=== PATIENT | male | born 1995 | race Caucasian/White ===

== ENCOUNTER 2017-02-01 21:37 | Emergency (ER) | payer BC ==
[2017-02-01 21:49] VITALS: RESP 16; TEMP 98.6
--- NOTE | 2017-02-01 22:35 | EDPHY ---
H & P Stated Complaint: Right Hand Injury Time Seen by Provider: 02/01/17 22:02 HPI/ROS: Chief complaint: Right hand injury History of present illness: This is a 21-year-old male who presents to the emergency department for evaluation of right hand injury. Patient reports earlier this evening he punched a tree. Since then he has noted abrasions to his hands as well as pain and swelling. It is difficult to move his fingers. He denies other associated signs or symptoms including no report of abnormal coolness or paresthesias in the hand. He denies pain or trauma to the wrist or the rest of the right upper extremity or other parts of the body. - Personal History Current Tetanus/Diphtheria Vaccine: Yes Current Tetanus Diphtheria and Acellular Pertussis (TDAP): Yes - Medical/Surgical History Hx Asthma: No Hx Chronic Respiratory Disease: No Hx Diabetes: No Hx Cardiac Disease: No Hx Renal Disease: No Hx Cirrhosis: No Hx Alcoholism: No Hx HIV/AIDS: No Hx Splenectomy or Spleen Trauma: No - Social History Smoking Status: Never smoked - Physical Exam Exam: General: Alert, nontoxic Skin: Abrasions over the MCP joints, no deep wounds or repairable lesions noted. Contusion over the dorsum of the hand. Musculoskeletal: Deformity over the dorsum of the right hand. Difficulty moving the fingers particularly of the 4th finger. The wrist including the snuffbox as well as the rest of the right upper extremity is nontender. He is moving the right elbow and shoulder without difficulty. Vascular: Radial pulses 2+. Capillary refill brisk in the right hand. Neurologic: Sensation intact throughout the right hand. Constitutional: Initial Vital Signs Temperature (C) 37 C 02/01/17 21:46 Heart Rate 70 02/01/17 21:46 Respiratory Rate 16 02/01/17 21:46 Blood Pressure 128/86 H 02/01/17 21:46 O2 Sat (%) 95 02/01/17 21:46 O2 Delivery Mode Room Air Allergies/Adverse Reactions: No Known Allergies Allergy (Unverified 02/01/17 21:49) Home Medications: Medication Instructions Recorded Hydrocodone/APAP 5/325 [Cornwall 1 tab PO Q4 #10 tab 02/01/17 5/325 (*)] Medical Decision Making - Diagnostics Imaging: X-ray series of the right hand consistent with a 4th metacarpal fracture Procedures: Procedure: Splint placement. A ulnar gutter splint was applied. After application of the splint I returned and re-examined the patient. The splint was adequately immobilizing the joint and distal to the splint the patient's circulation and sensation was intact. ED Course/Re-evaluation: Patient seen under the supervision of my secondary supervising physician Dr. Flex Horta. Patient presents to the emergency department for right hand injury. X-ray confirms fracture. He is neurovascularly intact. He is splinted. By history and physical exam no evidence of trauma to other parts of the body. Patient is discharged home. Home care is discussed. He is referred to Hand surgery for further evaluation and care. Return precautions are given. Patient voiced understanding and agreement with plan. - Data Points Medications Given: Discontinued Medications Hydrocodone Bitart/Acetaminophen (Cornwall 5/325mg Prepack#6) 1 btl TAKEHOME EDNOW ONE Stop: 02/01/17 22:37 Last Admin: 02/01/17 22:55 Dose: 1 btl Departure - Departure Disposition: Home, Routine, Self-Care Clinical Impression: Metacarpal bone fracture Qualifiers: Encounter type: initial encounter Metacarpal bone: fourth Fracture type: closed Metacarpal location: shaft Fracture alignment: displaced Laterality: right Qualified Code(s): S62.324A - Displaced fracture of shaft of fourth metacarpal bone, right hand, initial encounter for closed fracture Condition: Good Instructions: Hand Fracture (ED) Additional Instructions: Follow-up with a hand surgeon for continued evaluation and care In regards to pain control see the following: Use ibuprofen [600] mg [3] times a day for the next 2-3 days for pain In addition You have been prescribed [Cornwall] for pain. [Cornwall] contains Tylenol, do not take extra Tylenol/acetaminophen/Apap with it. It is sedating. If symptoms worsen or new symptoms develop return to the emergency department for recheck Referrals: Darrell Welsh MD [Medical Doctor] - As per Instructions Prescriptions: Hydrocodone/APAP 5/325 [Cornwall 5/325 (*)] 1 tab PO Q4 #10 tab
[2017-02-01] MEDS ORDERED: HYDROCOD/APAP 5/325 PREPACK#6 BTL TAKEHOME ONE (22:36)
[2017-02-01 23:03] VITALS: BP 136/81; PULSE 77; O2SAT 94
== END 2017-02-01 23:03 | disposition home or self-care (01) ==
LOC: MERGE 21:37
DX: S62.324A Displaced fracture of shaft of fourth metacarpal bone, right hand, initial encounter for closed fracture (principal); W22.8XXA Striking against or struck by other objects, initial encounter